=== PATIENT | male | born 1980 | race African-American/Black ===

== ENCOUNTER 2016-08-13 13:18 | Emergency (ER) | payer MEDICAID | END 2016-08-13 22:16 | disposition home or self-care (01) | LOC: D.ER 13:18 | DX: R51 Headache (principal); F17.200 Nicotine dependence, unspecified, uncomplicated ==

== ENCOUNTER 2016-08-14 12:33 | Emergency (ER) | payer MEDICAID | END 2016-08-14 15:44 | disposition home or self-care (01) | LOC: D.ER 12:33 | DX: G43.909 Migraine, unspecified, not intractable, without status migrainosus (principal) ==

== ENCOUNTER 2016-08-28 07:42 | Emergency (ER) | payer MEDICAID | END 2016-08-28 08:51 | disposition home or self-care (01) | LOC: D.ER 07:42 | DX: S41.112A Laceration without foreign body of left upper arm, initial encounter (principal); X99.1XXA Assault by knife, initial encounter; Y93.89 Activity, other specified; Y92.89 Other specified places as the place of occurrence of the external cause; F17.200 Nicotine dependence, unspecified, uncomplicated ==

== ENCOUNTER 2016-09-05 07:34 | Emergency (ER) | payer MEDICAID | END 2016-09-05 08:42 | disposition home or self-care (01) | LOC: D.ER 07:34 | DX: S41.112D Laceration without foreign body of left upper arm, subsequent encounter (principal); X58.XXXD Exposure to other specified factors, subsequent encounter; Y92.89 Other specified places as the place of occurrence of the external cause ==

== ENCOUNTER 2016-10-13 23:01 | Emergency (ER) | payer OTHER, MEDICAID | END 2016-10-13 23:51 | disposition home or self-care (01) | LOC: D.ER 23:01 | DX: R04.0 Epistaxis (principal); F17.200 Nicotine dependence, unspecified, uncomplicated ==

== ENCOUNTER 2016-10-19 14:55 | Emergency (ER) | payer OTHER, MEDICAID | END 2016-10-19 17:52 | disposition home or self-care (01) | LOC: D.ER 14:55 | DX: Z76.0 Encounter for issue of repeat prescription (principal); V43.52XA Car driver injured in collision with other type car in traffic accident, initial encounter; Y93.89 Activity, other specified; Y92.410 Unspecified street and highway as the place of occurrence of the external cause ==